=== PATIENT | male | born 1935 | race Caucasian/White ===

== ENCOUNTER → 2018-04-11 | Outpatient (CLI) | payer MEDICARE, OTHER ==
[2015-12-17 21:40] VITALS: BP 184/83
[~2018-04-11] MED LIST: ALPR0.25 PO; AMLO5TAB10 PO; ASCO500T2 PO; BREO ELLIPTA 11 EACH IH; BUDE10.2 IH; CEFU500T46 PO; CLOP75TA PO; DONE10TA7 PO; FERR325T72 PO; HYDR-2761 PO; IOHEXOL 240 MG/ML 50ML VIAL. PO ONE; IOHEXOL 300 MG/ML 100ML VIAL. IV ONE; TAMS0.4C97 PO; TRAM50TA PO
--- NOTE | 2018-04-11 14:10 | KCIC ---
Examination: CT pelvis with IV and oral contrast HISTORY: History of left inguinal hernia. COMPARISON: 12/17/2015 TECHNIQUE: Axial CT images of the pelvis were performed with oral and IV contrast. Cholecystectomy, so performed Exposure: One or more of the following individualized dose reduction techniques were utilized for this examination: 1. Automated exposure control 2. Adjustment of the mA and/or kV according to patient size 3. Use of iterative reconstruction technique. FINDINGS: The small bowel loops grossly appears unremarkable. Multiple sigmoid colon diverticulosis identified. Small fat-containing left inguinal hernia. Moderately large prostate gland. The urinary bladder is mildly distended Mild degenerative changes lumbar spine. Severe aortic atherosclerosis. IMPRESSION: 1. Small fat-containing left inguinal hernia. 2. Sigmoid colon diverticulosis. 3. Moderate prostatomegaly. Electronically signed by: Abebe Love MD (04/11/2018 2:06 PM) [facility]
== END | disposition home or self-care (01) ==
LOC: KCIC CT 09:38
PROVIDERS: ATTEND Family Medicine
DX: K40.90 Unilateral inguinal hernia, without obstruction or gangrene, not specified as recurrent (principal); K57.30 Diverticulosis of large intestine without perforation or abscess without bleeding; I70.0 Atherosclerosis of aorta; N32.89 Other specified disorders of bladder; I10 Essential (primary) hypertension
CPT/HCPCS: 72193; 82565; Q9966; Q9967

== ENCOUNTER 2018-08-11 11:06 | Inpatient (IN) | payer MEDICARE ==
[~2018-08-11] VITALS: Ht 172.7 cm; Wt 73.9 kg
[~2018-08-11 11:06] MED LIST changes: -AMLO5TAB10 PO; -ASCO500T2 PO; -BREO ELLIPTA 11 EACH IH; -BUDE10.2 IH; -CEFU500T46 PO; -DONE10TA7 PO; -FERR325T72 PO; -HYDR-2761 PO; -IOHEXOL 240 MG/ML 50ML VIAL. PO ONE; -IOHEXOL 300 MG/ML 100ML VIAL. IV ONE; -TAMS0.4C97 PO
[2018-08-11] MEDS ORDERED: methylPREDNISolone SOD SUCC PF 125 MG/2 ML VIAL. IV ONE (11:30)
[2018-08-11] MEDS ORDERED: NITROGLYCERIN SUBLINGUAL 0.4 MG BOTTLE OF 25. SL PRN (11:30)
[2018-08-11] MEDS ORDERED: ASPIRIN CHEWABLE 81 MG TABLET. PO ONE (11:30)
[2018-08-11] MEDS ORDERED: IPRATRPIUM/ALBUTEROL 0.5/2.5MG 3 ML NEBU. NEB ONE (11:30)
[2018-08-11 11:45] LABS: BASO # 0.1 x10^3/uL (0.0-0.2); BASO % 1 % (0-3); EOS % 0 % (0-3); HEMATOCRIT 33.5 % (39.0-53.0); HEMOGLOBIN 10.5 g/dL (13.0-17.5); LYMPH # 1.1 x10^3/uL (1.0-4.8); LYMPH % 15 % (24-48); MEAN CORPUSCULAR HEMOGLOBIN 23 pg (25-35); MEAN CORPUSCULAR HGB CONC 31 g/dL (31-37); MEAN CORPUSCULAR VOLUME 72 fL (79-100); MONO # 0.5 x10^3/uL (0.0-1.1); MONO % 7 % (0-9); NEUT # 5.5 x10^3uL (1.8-7.7); NEUT % 77 % (31-73); PLATELET COUNT 210 x10^3/uL (140-400); RED BLOOD COUNT 4.65 x10^6/uL (4.30-5.70); RED CELL DISTRIBUTION WIDTH 17.5 % (11.5-14.5); WHITE BLOOD COUNT 7.1 x10^3/uL (4.0-11.0)
[2018-08-11 11:49] LABS: PROTHROMBIN TIME PATIENT 14.4 SEC (11.7-14.0)
[2018-08-11 11:54] LABS: CALCIUM 9.7 mg/dL (8.5-10.1); CREATININE 0.9 mg/dL (0.7-1.3); GFR 80.6; POTASSIUM 4.4 mmol/L (3.5-5.1)
--- NOTE | 2018-08-11 11:54 | PHYS DOC ---
Past Medical History Past Medical History: Anxiety, CAD, COPD, Hypertension, PA Additional Past Medical Histor: hypoglycemia, enlarged prostate Past Surgical History: No Surgical History Smoking: Cigarettes Alcohol Use: None Drug Use: None Adult General Chief Complaint Chief Complaint: shortness of breath and chest pain [facility] HPI Patient is a 82 year old male who brought in by EMS because of shortness of breath and chest pain. Patient has history of COPD on home oxygen and currently is a smoker. Patient states she has had productive cough with yellow sputum for the last 2 weeks and since 00 30 a.m. had left lower lateral chest pain as a constant pain and rated his pain 5/10 without radiation. Patient complaining of shortness of breath with mild activity and exertion. Patient denies fever and chills, sore throat, earache, myalgia, headache sick contacts, vomiting and diarrhea, urinary symptoms, diarrhea and constipation. Patient has history of PA in 2008. Review of Systems Review of Systems Constitutional: Denies fever or chills [] Eyes: Denies change in visual acuity, redness, or eye pain [] HENT: Denies nasal congestion or sore throat [] Respiratory: Reports cough and shortness of breath Cardiovascular: No additional information not addressed in HPI [] GI: Denies abdominal pain, nausea, vomiting, bloody stools or diarrhea [] : Denies dysuria or hematuria [] Musculoskeletal: Denies back pain or joint pain [] Integument: Denies rash or skin lesions [] Neurologic: Denies headache, focal weakness or sensory changes [] Endocrine: Denies polyuria or polydipsia [] All other systems were reviewed and found to be within normal limits, except as documented in this note. Current Medications Current Medications Current Medications Medications (Trade) Dose Ordered Sig/Miriam Start Time Stop Time Status Last Admin Dose Admin Albuterol/ Ipratropium (Duoneb) 3 ml 1X ONCE 08/11/18 11:30 08/11/18 11:31 DC 08/11/18 11:38 3 ML Aspirin (Children'S Aspirin) 324 mg 1X ONCE 08/11/18 11:30 08/11/18 11:31 DC Azithromycin 250 ml @ 250 mls/hr 1X ONCE 08/11/18 14:15 08/11/18 15:14 Ceftriaxone Sodium (Rocephin) 1 gm 1X ONCE 08/11/18 14:00 08/11/18 14:01 DC 08/11/18 14:11 1 GM Iohexol (Omnipaque 350 Mg/ml) 100 ml 1X ONCE 08/11/18 12:30 08/11/18 12:31 DC 08/11/18 12:47 100 ML Methylprednisolone Sodium Succinate (SOLU-Medrol 125MG VIAL) 125 mg 1X ONCE 08/11/18 11:30 08/11/18 11:31 DC 08/11/18 11:46 125 MG Nitroglycerin (Nitrostat) 0.4 mg PRN Q5MIN PRN 08/11/18 11:30 08/12/18 11:29 08/11/18 11:47 0.4 MG Allergies Allergies Allergies Coded Allergies Type Severity Reaction Last Updated Verified No Known Drug Allergies 12/17/15 No Physical Exam Physical Exam Constitutional: Well developed, well nourished,mild distress, non-toxic appearance. [] HENT: Normocephalic, atraumatic, oropharynx moist. Eyes: PERRLA, EOMI, conjunctiva normal, no discharge. [] Neck: Normal range of motion, no tenderness, supple, no stridor. [] Cardiovascular:Heart rate regular rhythm, no murmur [] Lungs & Thorax: Mild respiratory distress with decrease of air movement bilaterally without wheezing Abdomen: Bowel sounds normal, soft, no tenderness, no masses, no pulsatile masses. [] Skin: Warm, dry, no erythema, no rash. [] Back: No tenderness, no CVA tenderness. [] Extremities: No tenderness, no cyanosis, no clubbing, ROM intact, no edema. [] Neurologic: Alert and oriented X 3, normal motor function, normal sensory function, no focal deficits noted. [] Psychologic: Affect normal, judgement normal, mood normal. [] Current Patient Data Vital Signs Vital Signs Date Time Temp Pulse Resp B/P (MAP) Pulse Ox O2 Delivery O2 Flow Rate FiO2 08/11/18 11:56 95 15 115/58 (77) 92 Nasal Cannula 2.0 08/11/18 11:09 98.7 98.7 Lab Values Laboratory Tests Test 08/11/18 11:20 08/11/18 11:30 White Blood Count 7.1 x10^3/uL (4.0-11.0) Red Blood Count 4.65 x10^6/uL (4.30-5.70) Hemoglobin 10.5 g/dL (13.0-17.5) L Hematocrit 33.5 % (39.0-53.0) L Mean Corpuscular Volume 72 fL (79-100) L Mean Corpuscular Hemoglobin 23 pg (25-35) L Mean Corpuscular Hemoglobin Concent 31 g/dL (31-37) Red Cell Distribution Width 17.5 % (11.5-14.5) H Platelet Count 210 x10^3/uL (140-400) Neutrophils (%) (Auto) 77 % (31-73) H Lymphocytes (%) (Auto) 15 % (24-48) L Monocytes (%) (Auto) 7 % (0-9) Eosinophils (%) (Auto) 0 % (0-3) Basophils (%) (Auto) 1 % (0-3) Neutrophils # (Auto) 5.5 x10^3uL (1.8-7.7) Lymphocytes # (Auto) 1.1 x10^3/uL (1.0-4.8) Monocytes # (Auto) 0.5 x10^3/uL (0.0-1.1) Eosinophils # (Auto) 0.0 x10^3/uL (0.0-0.7) Basophils # (Auto) 0.1 x10^3/uL (0.0-0.2) Platelet Estimate Adequate (ADEQUATE) Polychromasia Slight Hypochromasia Mod Anisocytosis Slight Microcytosis Slight Prothrombin Time 14.4 SEC (11.7-14.0) H Prothrombin Time INR 1.2 (0.8-1.1) H D-Dimer (Razia) 0.87 ug/mlFEU (0.00-0.50) H Sodium Level 135 mmol/L (136-145) L Potassium Level 4.4 mmol/L (3.5-5.1) Chloride Level 99 mmol/L (98-107) Carbon Dioxide Level 27 mmol/L (21-32) Anion Gap 9 (6-14) Blood Urea Nitrogen 13 mg/dL (8-26) Creatinine 0.9 mg/dL (0.7-1.3) Estimated GFR (Cockcroft-Gault) 80.6 BUN/Creatinine Ratio 14 (6-20) Glucose Level 106 mg/dL (70-99) H Calcium Level 9.7 mg/dL (8.5-10.1) Magnesium Level 2.0 mg/dL (1.8-2.4) Total Bilirubin 0.5 mg/dL (0.2-1.0) Aspartate Amino Transferase (AST) 17 U/L (15-37) Alanine Aminotransferase (ALT) 18 U/L (16-63) Alkaline Phosphatase 106 U/L (46-116) Creatine Kinase 72 U/L (39-308) Troponin I Quantitative < 0.017 ng/mL (0.000-0.055) HH-Hze-U-Type Natriuretic Peptide 565 pg/mL (0-449) H Total Protein 7.5 g/dL (6.4-8.2) Albumin 3.6 g/dL (3.4-5.0) Albumin/Globulin Ratio 0.9 (1.0-1.7) L Lactic Acid Level 0.9 mmol/L (0.4-2.0) Laboratory Tests 08/11/18 11:20 Laboratory Tests 08/11/18 11:20 EKG EKG EKG interpreted by me. EKG at 1110 showed normal sinus rhythm at rate of 99, PVCs, poor R-wave progress in anteroseptal leads, no acute ST and T-wave abnormalities. Radiology/Procedures Radiology/Procedures [facility] [address] [place] [address] IMAGING REPORT Signed PATIENT: VITA VELA ACCOUNT: [id number] : 1935 LOCATION: ER AGE: 82 SEX: M EXAM STATUS: REG ER ORD. PHYSICIAN: CATA ESQUIVEL MD REASON: chest pain and shortness of breath PROCEDURE: PORTABLE CHEST 1V EXAM: CHEST 1 VIEW History: Chest pain, shortness of breath COMPARISON: None available. TECHNIQUE: Single portable radiograph of the chest FINDINGS: The cardiac silhouette is unremarkable. Mild prominent bilateral interstitial lung markings. Mild bibasilar lung airspace opacities. IMPRESSION: 1. Mild prominent bilateral interstitial lung markings could be chronic interstitial changes. 2. Mild bibasilar lung airspace opacities likely atelectasis or infiltrates. Electronically signed by: Abebe Love MD (08/11/2018 12:08 PM) [place] [id number] DICTATED and SIGNED BY: ABEBE LOVE MD DATE: 08/11/18 1208 [facility] [address] [place] [address] IMAGING REPORT Signed PATIENT: VITA VELA ACCOUNT: [id number] : 1935 LOCATION: ER AGE: 82 SEX: M EXAM STATUS: REG ER ORD. PHYSICIAN: CATA ESQUIVEL MD REASON: shortness of breath and chest pain, elevated d-dimer PROCEDURE: CT ANGIOGRAPHY CHEST Examination: CT ANGIOGRAPHY CHEST History: Shortness of breath and chest pain, elevated d-dimer Comparison/Correlation: None Findings: Axial images of chest were obtained following IV contrast according to pulmonary arteriography protocol. Sagittal and coronal reformatted images were provided. MIP images provided. Respiratory motion limits evaluation at the left lung base in particular. Pulmonary arterial vasculature is normal with no thromboembolic disease. Consolidation at left lower lobe superior segment is present. Evaluation may be limited in this region. Diffuse centrilobular emphysematous involvement along cazares noted. Right middle lobe nodule measuring up to 1.3 cm x 0.7 cm is present. It is slightly irregularly marginated. Borderline sized aorticopulmonary window lymph nodes present. Lymph nodes otherwise are not enlarged. Tracheobronchial tree is unremarkable. Thoracic aorta is very well-opacified and unremarkable for the patient's age. No acute bony process. Partially visualized upper abdomen is unremarkable. Impression: Left lower lobe superior segment consolidative process. Right middle lobe nodular infiltrate. Follow-up to resolution is recommended to exclude underlying mass lesions. No pulmonary arterial thromboembolic disease. PQRS Compliance Statement: One or more of the following individualized dose reduction techniques were utilized for this examination: 1. Automated exposure control 2. Adjustment of the mA and/or kV according to patient size 3. Use of iterative reconstruction technique Electronically signed by: Grarett Santos MD (08/11/2018 12:57 PM) [facility] DICTATED and SIGNED BY: GARRETT SANTOS MD DATE: 08/11/18 1257 Course & Med Decision Making Course & Med Decision Making Pertinent Labs and Imaging studies reviewed. (See chart for details) Evaluation of patient in ER showed 81-year-old male patient with history of smoking and COPD on home oxygen brought in by EMS because of left-sided chest pain and shortness of breath. Patient had O2 sat of 92% on home oxygen with decreased air movement in bilateral lung. Patient had elevation of d-dimer and CT of chest did not show PE but showed infiltration in left lung. Patient informed about the test result and agreed for hospitalization.Patient requiring admission for further evaluation and treatment. Discussed with Dr. Tabares who is in agreement with admission. Discussed findings and plan with patient and sarika johnson, who acknowledge understanding and agreement. Dragon Disclaimer Dragon Disclaimer This electronic medical record was generated, in whole or in part, using a voice recognition dictation system. Departure Departure Impression: Primary Impression: CAP (community acquired pneumonia) Additional Impressions: Chest wall pain COPD (chronic obstructive pulmonary disease) Tobacco abuse Tobacco abuse counseling Disposition: 09 ADMITTED INPATIENT (admitted at 1410) Admitting Physician: Leonard Tabares (accepted admission at 1410) Condition: IMPROVED Referrals: Bernie TABARES MD (PCP) Problem Qualifiers Primary Impression: CAP (community acquired pneumonia) Laterality: left Lung location: lower lobe of lung Qualified Codes: J18.1 - Lobar pneumonia, unspecified organism Additional Impressions: COPD (chronic obstructive pulmonary disease) COPD type: chronic bronchitis Chronic bronchitis type: unspecified Qualified Codes: J42 - Unspecified chronic bronchitis CATA ESQUIVEL MD August 11, 2018 11:54
[2018-08-11 11:59] LABS: D-DIMER 0.87 ug/mlFEU (0.00-0.50)
--- NOTE | 2018-08-11 12:05 | EKG ---
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
[2018-08-11 12:06] LABS: ALBUMIN 3.6 g/dL (3.4-5.0); ALBUMIN/GLOBULIN RATIO 0.9 (1.0-1.7); TOTAL BILIRUBIN 0.5 mg/dL (0.2-1.0); TOTAL PROTEIN 7.5 g/dL (6.4-8.2)
--- NOTE | 2018-08-11 12:11 | RAD ---
EXAM: CHEST 1 VIEW History: Chest pain, shortness of breath COMPARISON: None available. TECHNIQUE: Single portable radiograph of the chest FINDINGS: The cardiac silhouette is unremarkable. Mild prominent bilateral interstitial lung markings. Mild bibasilar lung airspace opacities. IMPRESSION: 1. Mild prominent bilateral interstitial lung markings could be chronic interstitial changes. 2. Mild bibasilar lung airspace opacities likely atelectasis or infiltrates. Electronically signed by: Abebe Love MD (08/11/2018 12:08 PM) [place] [id number]
[2018-08-11] MEDS ORDERED: IOHEXOL 350 MG/ML 100 ML VIAL. IV ONE (12:30)
--- NOTE | 2018-08-11 13:00 | RAD ---
Examination: CT ANGIOGRAPHY CHEST History: Shortness of breath and chest pain, elevated d-dimer Comparison/Correlation: None Findings: Axial images of chest were obtained following IV contrast according to pulmonary arteriography protocol. Sagittal and coronal reformatted images were provided. MIP images provided. Respiratory motion limits evaluation at the left lung base in particular. Pulmonary arterial vasculature is normal with no thromboembolic disease. Consolidation at left lower lobe superior segment is present. Evaluation may be limited in this region. Diffuse centrilobular emphysematous involvement along cazares noted. Right middle lobe nodule measuring up to 1.3 cm x 0.7 cm is present. It is slightly irregularly marginated. Borderline sized aorticopulmonary window lymph nodes present. Lymph nodes otherwise are not enlarged. Tracheobronchial tree is unremarkable. Thoracic aorta is very well-opacified and unremarkable for the patient's age. No acute bony process. Partially visualized upper abdomen is unremarkable. Impression: Left lower lobe superior segment consolidative process. Right middle lobe nodular infiltrate. Follow-up to resolution is recommended to exclude underlying mass lesions. No pulmonary arterial thromboembolic disease. PQRS Compliance Statement: One or more of the following individualized dose reduction techniques were utilized for this examination: 1. Automated exposure control 2. Adjustment of the mA and/or kV according to patient size 3. Use of iterative reconstruction technique Electronically signed by: Garrett George MD (08/11/2018 12:57 PM) [facility]
[2018-08-11] MEDS ORDERED: cefTRIAXone IV Push 1 GM VIAL. IVP ONE (14:00)
[2018-08-11] MEDS ORDERED: AZITHRMYCN 500MG IVPB FOR OMNI 250 ML IV ONE (14:15)
[2018-08-11 14:23] LABS: ANISOCYTOSIS SLIGHT; HYPOCHROMIA MOD; MICROCYTOSIS SLIGHT; PLT ESTIMATE ADEQUATE (ADEQUATE); POLYCHROMASIA SLIGHT
[2018-08-11 16:30] VITALS: BP 103/72
[2018-08-11] MEDS ORDERED: AMLO5TAB10 PO (17:18)
[2018-08-11] MEDS ORDERED: DONE10TA7 PO (17:18)
[2018-08-11] MEDS ORDERED: HYDR-2761 PO (17:21)
[2018-08-11] MEDS ORDERED: TAMS0.4C97 PO (17:21)
[2018-08-11] MEDS ORDERED: BREO ELLIPTA 11 EACH IH (17:21)
--- NOTE | 2018-08-11 18:04 | PDOC1 ---
History and Physical Date of Admission Date of Admission 08/11/18 Identification/Chief Complaint Chief Complaint SOA Source Source: Patient History of Present Illness History of Present Illness He has had a cough for the past two weeks that will leave him breathless but if he rests and uses hi O2 he recovers. Last night he dreamed he was hot then cold and was awakened by a colicky pain in his LUQ and eventually had a couple of loose stools. He continued to not feel well and called the office and was directed to call 911 which he did and was brought to the ER and seen and admitted with a COPD exacerbation and community acquired pneumonia. He is feeling better and talking in complete sentences and sitting up in bed eating dinner. He usually uses Symbicort at home but his insurance doesnt cover it and due to a prior palsy he does not close his lips around Breo well enough for it to last all day Past Medical History Cardiovascular: CAD, HTN Pulmonary: COPD CENTRAL NERVOUS SYSTEM: CVA GI: GERD Heme/Onc: No pertinent hx Hepatobiliary: No pertinent hx Psych: Anxiety Rheumatologic: Other (OA) Infectious disease: No pertinent hx ENT: No pertinent hx Renal/: No pertinent hx Endocrine: No pertinent hx Dermatology: No pertinent hx Past Surgical History Past Surgical History: No pertinent history Family History Family History: Heart Disease Social History Smoke: Quit ALCOHOL: none Drugs: None Current Problem List Problem List Problems Medical Problems: (1) CAP (community acquired pneumonia) Status: Acute (2) Chest wall pain Status: Acute (3) COPD (chronic obstructive pulmonary disease) Status: Acute (4) Tobacco abuse Status: Acute (5) Tobacco abuse counseling Status: Acute Current Medications Current Medications Current Medications Medications (Trade) Dose Ordered Sig/Miriam Start Time Stop Time Status Last Admin Dose Admin Albuterol/ Ipratropium (Duoneb) 3 ml 1X ONCE 08/11/18 11:30 08/11/18 11:31 DC 08/11/18 11:38 3 ML Aspirin (Children'S Aspirin) 324 mg 1X ONCE 08/11/18 11:30 08/11/18 11:31 DC Azithromycin 250 ml @ 250 mls/hr 1X ONCE 08/11/18 14:15 08/11/18 15:14 DC 08/11/18 15:31 250 MLS/HR Ceftriaxone Sodium (Rocephin) 1 gm 1X ONCE 08/11/18 14:00 08/11/18 14:01 DC 08/11/18 14:11 1 GM Iohexol (Omnipaque 350 Mg/ml) 100 ml 1X ONCE 08/11/18 12:30 08/11/18 12:31 DC 08/11/18 12:47 100 ML Methylprednisolone Sodium Succinate (SOLU-Medrol 125MG VIAL) 125 mg 1X ONCE 08/11/18 11:30 08/11/18 11:31 DC 08/11/18 11:46 125 MG Nitroglycerin (Nitrostat) 0.4 mg PRN Q5MIN PRN 08/11/18 11:30 08/12/18 11:29 08/11/18 11:47 0.4 MG Allergies Allergies Allergies Coded Allergies Type Severity Reaction Last Updated Verified statins, zetia myalgia, headache 12/17/15 No ROS Review of System CONSTITUTIONAL: No fever or chills EYES: No recent changes, wears glasses SKIN: No rash or itching CARDIOVASCULAR: No chest pain, syncope, palpitations, or edema RESPIRATORY: + SOB, + cough GASTROINTESTINAL: colicky LUQ abdominal pin last night NEUROLOGICAL: left facial droop ENDOCRINE: No cold or heat intolerance GENITOURINARY: hx of urinary retention MUSCULOSKELETAL: No back pain or joint pain LYMPHATICS: No enlarged lymph nodes PSYCHIATRIC: + anxiety controlled with meds Physical Exam Physical Exam GEN.: No apparent distress. Alert and oriented. HEENT: Head is normocephalic, atraumatic NECK: Supple. LUNGS: Clear to auscultation. HEART: RRR, S1, S2 present. Peripheral pulses intact ABDOMEN: Soft, nontender. Positive bowel sounds. EXTREMITIES: Without any cyanosis. NEUROLOGIC: left lower facial droop PSYCHIATRIC: Normal affect, normal mood. SKIN: No ulcerations Vitals Vitals Vital Signs Date Time Temp Pulse Resp B/P (MAP) Pulse Ox O2 Delivery O2 Flow Rate FiO2 08/11/18 16:30 97.9 93 18 103/72 (82) 93 Room Air 97.9 08/11/18 11:56 2.0 Labs Labs Laboratory Tests Test 08/11/18 11:20 08/11/18 11:30 White Blood Count 7.1 x10^3/uL (4.0-11.0) Red Blood Count 4.65 x10^6/uL (4.30-5.70) Hemoglobin 10.5 g/dL (13.0-17.5) Hematocrit 33.5 % (39.0-53.0) Mean Corpuscular Volume 72 fL (79-100) Mean Corpuscular Hemoglobin 23 pg (25-35) Mean Corpuscular Hemoglobin Concent 31 g/dL (31-37) Red Cell Distribution Width 17.5 % (11.5-14.5) Platelet Count 210 x10^3/uL (140-400) Neutrophils (%) (Auto) 77 % (31-73) Lymphocytes (%) (Auto) 15 % (24-48) Monocytes (%) (Auto) 7 % (0-9) Eosinophils (%) (Auto) 0 % (0-3) Basophils (%) (Auto) 1 % (0-3) Neutrophils # (Auto) 5.5 x10^3uL (1.8-7.7) Lymphocytes # (Auto) 1.1 x10^3/uL (1.0-4.8) Monocytes # (Auto) 0.5 x10^3/uL (0.0-1.1) Eosinophils # (Auto) 0.0 x10^3/uL (0.0-0.7) Basophils # (Auto) 0.1 x10^3/uL (0.0-0.2) Platelet Estimate Adequate (ADEQUATE) Polychromasia Slight Hypochromasia Mod Anisocytosis Slight Microcytosis Slight Prothrombin Time 14.4 SEC (11.7-14.0) Prothromb Time International Ratio 1.2 (0.8-1.1) D-Dimer (Razia) 0.87 ug/mlFEU (0.00-0.50) Sodium Level 135 mmol/L (136-145) Potassium Level 4.4 mmol/L (3.5-5.1) Chloride Level 99 mmol/L (98-107) Carbon Dioxide Level 27 mmol/L (21-32) Anion Gap 9 (6-14) Blood Urea Nitrogen 13 mg/dL (8-26) Creatinine 0.9 mg/dL (0.7-1.3) Estimated GFR (Cockcroft-Gault) 80.6 BUN/Creatinine Ratio 14 (6-20) Glucose Level 106 mg/dL (70-99) Calcium Level 9.7 mg/dL (8.5-10.1) Magnesium Level 2.0 mg/dL (1.8-2.4) Total Bilirubin 0.5 mg/dL (0.2-1.0) Aspartate Amino Transf (AST/SGOT) 17 U/L (15-37) Alanine Aminotransferase (ALT/SGPT) 18 U/L (16-63) Alkaline Phosphatase 106 U/L (46-116) Creatine Kinase 72 U/L (39-308) Troponin I Quantitative < 0.017 ng/mL (0.000-0.055) KJ-Sun-H-Type Natriuretic Peptide 565 pg/mL (0-449) Total Protein 7.5 g/dL (6.4-8.2) Albumin 3.6 g/dL (3.4-5.0) Albumin/Globulin Ratio 0.9 (1.0-1.7) Lactic Acid Level 0.9 mmol/L (0.4-2.0) Laboratory Tests Test 08/11/18 11:20 08/11/18 11:30 White Blood Count 7.1 x10^3/uL (4.0-11.0) Red Blood Count 4.65 x10^6/uL (4.30-5.70) Hemoglobin 10.5 g/dL (13.0-17.5) Hematocrit 33.5 % (39.0-53.0) Mean Corpuscular Volume 72 fL (79-100) Mean Corpuscular Hemoglobin 23 pg (25-35) Mean Corpuscular Hemoglobin Concent 31 g/dL (31-37) Red Cell Distribution Width 17.5 % (11.5-14.5) Platelet Count 210 x10^3/uL (140-400) Neutrophils (%) (Auto) 77 % (31-73) Lymphocytes (%) (Auto) 15 % (24-48) Monocytes (%) (Auto) 7 % (0-9) Eosinophils (%) (Auto) 0 % (0-3) Basophils (%) (Auto) 1 % (0-3) Neutrophils # (Auto) 5.5 x10^3uL (1.8-7.7) Lymphocytes # (Auto) 1.1 x10^3/uL (1.0-4.8) Monocytes # (Auto) 0.5 x10^3/uL (0.0-1.1) Eosinophils # (Auto) 0.0 x10^3/uL (0.0-0.7) Basophils # (Auto) 0.1 x10^3/uL (0.0-0.2) Platelet Estimate Adequate (ADEQUATE) Polychromasia Slight Hypochromasia Mod Anisocytosis Slight Microcytosis Slight Prothrombin Time 14.4 SEC (11.7-14.0) Prothromb Time International Ratio 1.2 (0.8-1.1) D-Dimer (Razia) 0.87 ug/mlFEU (0.00-0.50) Sodium Level 135 mmol/L (136-145) Potassium Level 4.4 mmol/L (3.5-5.1) Chloride Level 99 mmol/L (98-107) Carbon Dioxide Level 27 mmol/L (21-32) Anion Gap 9 (6-14) Blood Urea Nitrogen 13 mg/dL (8-26) Creatinine 0.9 mg/dL (0.7-1.3) Estimated GFR (Cockcroft-Gault) 80.6 BUN/Creatinine Ratio 14 (6-20) Glucose Level 106 mg/dL (70-99) Calcium Level 9.7 mg/dL (8.5-10.1) Magnesium Level 2.0 mg/dL (1.8-2.4) Total Bilirubin 0.5 mg/dL (0.2-1.0) Aspartate Amino Transf (AST/SGOT) 17 U/L (15-37) Alanine Aminotransferase (ALT/SGPT) 18 U/L (16-63) Alkaline Phosphatase 106 U/L (46-116) Creatine Kinase 72 U/L (39-308) Troponin I Quantitative < 0.017 ng/mL (0.000-0.055) RO-Zna-D-Type Natriuretic Peptide 565 pg/mL (0-449) Total Protein 7.5 g/dL (6.4-8.2) Albumin 3.6 g/dL (3.4-5.0) Albumin/Globulin Ratio 0.9 (1.0-1.7) Lactic Acid Level 0.9 mmol/L (0.4-2.0) Images Images Examination: CT ANGIOGRAPHY CHEST History: Shortness of breath and chest pain, elevated d-dimer Comparison/Correlation: None Findings: Axial images of chest were obtained following IV contrast according to pulmonary arteriography protocol. Sagittal and coronal reformatted images were provided. MIP images provided. Respiratory motion limits evaluation at the left lung base in particular. Pulmonary arterial vasculature is normal with no thromboembolic disease. Consolidation at left lower lobe superior segment is present. Evaluation may be limited in this region. Diffuse centrilobular emphysematous involvement along cazares noted. Right middle lobe nodule measuring up to 1.3 cm x 0.7 cm is present. It is slightly irregularly marginated. Borderline sized aorticopulmonary window lymph nodes present. Lymph nodes otherwise are not enlarged. Tracheobronchial tree is unremarkable. Thoracic aorta is very well-opacified and unremarkable for the patient's age. No acute bony process. Partially visualized upper abdomen is unremarkable. Impression: Left lower lobe superior segment consolidative process. Right middle lobe nodular infiltrate. Follow-up to resolution is recommended to exclude underlying mass lesions. No pulmonary arterial thromboembolic disease. VTE Prophylaxis Ordered VTE Prophylaxis Devices: Yes VTE Pharmacological Prophylaxi: Yes Assessment/Plan Assessment/Plan CAP vs aspiration pneumonia - IV abx, pulm consult possible lung mass -see if clears with tx of CAP COPD, emphysema - neb treatments CAD s/p RCA stent 2008 HTN - continue amlodipine, lisinopril carotid stenosis - continue plavix GERD - continue omeprazole OA - continue tramodol mild cognitive dysfunction - continue donepezil anxiety - cont alprazolam Bernie QUESADA MD August 11, 2018 18:04
[2018-08-11] MEDS ORDERED: traMADol 50 MG TABLET PO PRN (18:15)
[2018-08-11 19:00] VITALS: BP 145/66
[2018-08-11] MEDS: IPRATRPIUM/ALBUTEROL 0.5/2.5MG 3 ML NEBU. NEB SCH (19:58)
[2018-08-11] MEDS: BUDESONIDE 0.5 MG/2 ML NEBU. NEB SCH (19:58)
[2018-08-11] MEDS: DONEPEZIL HCL 10 MG TABLET. PO SCH (21:28)
[2018-08-11] MEDS: TAMSULOSIN 0.4 MG CAP.ER.24H. PO SCH (21:29)
[2018-08-11] MEDS ORDERED: ALPRAZolam 0.25 MG TABLET PO SCH (22:00)
[2018-08-11 23:05] VITALS: BP 140/65
[2018-08-12] VITALS (7 sets, daily range): BP systolic 128–162; BP diastolic 35–74
[2018-08-12 07:47] LABS: BASO % 0 % (0-3); EOS % 0 % (0-3); HEMOGLOBIN 9.4 g/dL (13.0-17.5); LYMPH # 0.9 x10^3/uL (1.0-4.8); LYMPH % 14 % (24-48); MEAN CORPUSCULAR HEMOGLOBIN 23 pg (25-35); MEAN CORPUSCULAR HGB CONC 31 g/dL (31-37); MEAN CORPUSCULAR VOLUME 72 fL (79-100); MONO # 0.4 x10^3/uL (0.0-1.1); MONO % 6 % (0-9); NEUT # 5.4 x10^3uL (1.8-7.7); NEUT % 80 % (31-73); PLATELET COUNT 197 x10^3/uL (140-400); RED BLOOD COUNT 4.19 x10^6/uL (4.30-5.70); RED CELL DISTRIBUTION WIDTH 17.3 % (11.5-14.5); WHITE BLOOD COUNT 6.7 x10^3/uL (4.0-11.0)
[2018-08-12 07:49] LABS: CALCIUM 9.4 mg/dL (8.5-10.1); GFR 71.4; POTASSIUM 4.2 mmol/L (3.5-5.1)
[2018-08-12] MEDS: BUDESONIDE 0.5 MG/2 ML NEBU. NEB SCH ×2 (07:58→20:11)
[2018-08-12] MEDS: IPRATRPIUM/ALBUTEROL 0.5/2.5MG 3 ML NEBU. NEB SCH ×4 (07:58→20:10)
[2018-08-12] MEDS ORDERED: TAMSULOSIN 0.4 MG CAP.ER.24H. PO SCH (09:00)
[2018-08-12] MEDS ORDERED: ALPRAZolam 0.25 MG TABLET PO SCH (09:00)
[2018-08-12] MEDS ORDERED: DONEPEZIL HCL 10 MG TABLET. PO SCH (09:00)
[2018-08-12] MEDS: amLODIPine BESYLATE 5 MG TABLET PO SCH (09:22)
[2018-08-12] MEDS: CLOPIDOGREL BISULFATE 75 MG TABLET PO SCH (09:23)
[2018-08-12] MEDS: TAMSULOSIN 0.4 MG CAP.ER.24H. PO SCH (09:23)
[2018-08-12] MEDS: DONEPEZIL HCL 10 MG TABLET. PO SCH ×2 (09:24→21:23)
--- NOTE | 2018-08-12 14:32 | NUR ---
SW following pt for anticipated dc needs. Chart reviewed. Pt lives at home with family. No dc recommendations noted at this time. Will continue to eval dc needs.
--- NOTE | 2018-08-12 14:53 | CONS ---
DATE OF CONSULTATION: PULMONARY CONSULTATION ATTENDING PHYSICIAN: Dr. Tabares. REASON FOR CONSULTATION: Pneumonia. HISTORY OF PRESENT ILLNESS: The patient is an 82-year-old who came into the hospital complaining of shortness of breath for the last 2 weeks. He has a cough, which has been nonproductive. He was complaining of pain in the left upper quadrant and also left lower chest area. He has also had colicky pain in the past when he was in [place]. The patient has no weight loss. No fever, no chills. He underwent imaging study and was found to have an abnormal CT chest. There was no evidence of any pulmonary embolism. However, there was consolidation seen in the left lower lobe superior segment and also nodular infiltrates in the right middle lobe. The patient was started on antibiotic and I have been asked to see him for further evaluation. He denies any headaches, no nausea or vomiting. No diarrhea. No focal weakness. No weight loss. 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 PAST SURGICAL HISTORY: No recent surgeries. ALLERGIES: CODEINE. MEDICATIONS: Reviewed as listed in the MRAD. He received azithromycin. REVIEW OF SYSTEMS: Twelve-point system obtained. Pertinent positives discussed in my history of present illness, otherwise noncontributory. All systems that were negative were reviewed as well. SOCIAL HISTORY: Smoked pipe most of his life. PHYSICAL EXAMINATION: VITAL SIGNS: Stable. Pulse ox 94% on room air. NECK: Supple. LUNGS: Diminished breath sounds at the bases. CARDIOVASCULAR: Regular rate and rhythm. ABDOMEN: Soft, nontender. EXTREMITIES: With no pitting edema. LABORATORY DATA: Reviewed. White cell count 6.7, hemoglobin 9.4 and platelets are 197. BUN 17, creatinine 1.0. IMPRESSION: 1. Dyspnea secondary to acute exacerbation of chronic obstructive pulmonary disease and pneumonia. 2. Community-acquired pneumonia. He has an abnormal CT chest, which shows nodular infiltrate in the right middle lobe and also some nodular consolidation in the superior segment of the left lower lobe. This was surrounded by faint alveolar infiltrates. He would benefit from a followup CT chest in 4-6 weeks to rule out any malignancy. 3. Pipe smoker for last 50+ years. He likely has underlying chronic obstructive pulmonary disease. RECOMMENDATIONS: 1. Continue with present antibiotic. 2. Bronchodilators. 3. Follow up CT chest in 6-8 weeks. 4. PFTs as an outpatient. 5. Smoking cessation counseling provided. 6. Discussed with RN. SONU GERARD MD DR: RAJAN/sg JOB#: [id number] / [id number]
[2018-08-12] MEDS: cefTRIAXone IV Push 1 GM VIAL. IVP SCH (15:21)
--- NOTE | 2018-08-12 17:42 | PDOC ---
PROGRESS NOTES Subjective His left lower lobe pain has resolved, not needing O2, had trouble swallowing liquids so has video study tomorrow, talkative and ornery and emotional today Objective Afebrile General: as above Heart: RRR Lungs: Clear anteriorly, no cough while talking Abd: soft, non tender Ext: no C/C/E WBC: 6.7 Hgb: 9.4 with low iron, low ferritin K+: 4.2 Creat: 1.0 Vital Signs Vital Signs Date Time Temp Pulse Resp B/P (MAP) Pulse Ox O2 Delivery O2 Flow Rate FiO2 08/12/18 15:14 94 Room Air 08/12/18 15:00 98.3 69 20 139/60 (86) 98.3 08/12/18 08:00 2.0 I & O Intake and Output 08/12/18 07:00 Intake Total 700 ml Balance 700 ml Intake Oral 700 ml # Voids 2 Assessment and Plan A/P (1) CAP (community acquired pneumonia) - continue IV Rocephin, will need f/u CT scan in a few months Status: Acute (2) CAD/Chest wall pain - resolved, lo salt diet Status: Acute (3) COPD (chronic obstructive pulmonary disease) - continue neb treatments Status: Acute (4) Tobacco abuse - pipe smoker Status: Acute (5) anemia- iron def, add oral supplement Status: Acute Bernie QUESADA MD August 12, 2018 17:42
[2018-08-12] MEDS: ALPRAZolam 1 MG TABLET PO PRN (21:00)
[2018-08-12] MEDS ORDERED: TAMSULOSIN 0.4 MG CAP.ER.24H. PO ONE (21:30)
[2018-08-13 07:00] VITALS: BP 133/70
[2018-08-13] MEDS: BUDESONIDE 0.5 MG/2 ML NEBU. NEB SCH ×2 (08:00→20:22)
[2018-08-13] MEDS: IPRATRPIUM/ALBUTEROL 0.5/2.5MG 3 ML NEBU. NEB SCH ×4 (08:16→20:22)
[2018-08-13] MEDS: CLOPIDOGREL BISULFATE 75 MG TABLET PO SCH (08:33)
[2018-08-13] MEDS: ASCORBIC ACID 500 MG TABLET PO SCH (08:33)
[2018-08-13] MEDS: FERROUS SULFATE 325 MG TABLET. PO SCH (08:34)
[2018-08-13] MEDS: amLODIPine BESYLATE 5 MG TABLET PO SCH (08:34)
[2018-08-13] MEDS ORDERED: BARIUM SULFATE 40% (APPLE) 148 GM PWD. PO ONE (10:00)
--- NOTE | 2018-08-13 10:45 | PDOC ---
PULMONARY PROGRESS NOTES Vitals Vital Signs Date Time Temp Pulse Resp B/P (MAP) Pulse Ox O2 Delivery O2 Flow Rate FiO2 08/13/18 08:34 104 130/61 08/13/18 08:16 98 Nasal Cannula 1.5 08/13/18 07:00 98.0 18 98.0 Labs Laboratory Tests Test 08/11/18 11:20 08/11/18 11:30 08/12/18 06:30 White Blood Count 7.1 x10^3/uL (4.0-11.0) 6.7 x10^3/uL (4.0-11.0) Red Blood Count 4.65 x10^6/uL (4.30-5.70) 4.19 x10^6/uL (4.30-5.70) Hemoglobin 10.5 g/dL (13.0-17.5) 9.4 g/dL (13.0-17.5) Hematocrit 33.5 % (39.0-53.0) 30.0 % (39.0-53.0) Mean Corpuscular Volume 72 fL (79-100) 72 fL (79-100) Mean Corpuscular Hemoglobin 23 pg (25-35) 23 pg (25-35) Mean Corpuscular Hemoglobin Concent 31 g/dL (31-37) 31 g/dL (31-37) Red Cell Distribution Width 17.5 % (11.5-14.5) 17.3 % (11.5-14.5) Platelet Count 210 x10^3/uL (140-400) 197 x10^3/uL (140-400) Neutrophils (%) (Auto) 77 % (31-73) 80 % (31-73) Lymphocytes (%) (Auto) 15 % (24-48) 14 % (24-48) Monocytes (%) (Auto) 7 % (0-9) 6 % (0-9) Eosinophils (%) (Auto) 0 % (0-3) 0 % (0-3) Basophils (%) (Auto) 1 % (0-3) 0 % (0-3) Neutrophils # (Auto) 5.5 x10^3uL (1.8-7.7) 5.4 x10^3uL (1.8-7.7) Lymphocytes # (Auto) 1.1 x10^3/uL (1.0-4.8) 0.9 x10^3/uL (1.0-4.8) Monocytes # (Auto) 0.5 x10^3/uL (0.0-1.1) 0.4 x10^3/uL (0.0-1.1) Eosinophils # (Auto) 0.0 x10^3/uL (0.0-0.7) 0.0 x10^3/uL (0.0-0.7) Basophils # (Auto) 0.1 x10^3/uL (0.0-0.2) 0.0 x10^3/uL (0.0-0.2) Platelet Estimate Adequate (ADEQUATE) Polychromasia Slight Hypochromasia Mod Anisocytosis Slight Microcytosis Slight Prothrombin Time 14.4 SEC (11.7-14.0) Prothromb Time International Ratio 1.2 (0.8-1.1) D-Dimer (Razia) 0.87 ug/mlFEU (0.00-0.50) Sodium Level 135 mmol/L (136-145) 135 mmol/L (136-145) Potassium Level 4.4 mmol/L (3.5-5.1) 4.2 mmol/L (3.5-5.1) Chloride Level 99 mmol/L (98-107) 101 mmol/L (98-107) Carbon Dioxide Level 27 mmol/L (21-32) 25 mmol/L (21-32) Anion Gap 9 (6-14) 9 (6-14) Blood Urea Nitrogen 13 mg/dL (8-26) 17 mg/dL (8-26) Creatinine 0.9 mg/dL (0.7-1.3) 1.0 mg/dL (0.7-1.3) Estimated GFR (Cockcroft-Gault) 80.6 71.4 BUN/Creatinine Ratio 14 (6-20) Glucose Level 106 mg/dL (70-99) 144 mg/dL (70-99) Calcium Level 9.7 mg/dL (8.5-10.1) 9.4 mg/dL (8.5-10.1) Magnesium Level 2.0 mg/dL (1.8-2.4) Iron Level 26 ug/dL (65-175) Total Iron Binding Capacity 350 ug/dL (250-450) Iron Saturation 7 % (15-34) Ferritin 14 ng/mL (26-388) Total Bilirubin 0.5 mg/dL (0.2-1.0) Aspartate Amino Transf (AST/SGOT) 17 U/L (15-37) Alanine Aminotransferase (ALT/SGPT) 18 U/L (16-63) Alkaline Phosphatase 106 U/L (46-116) Creatine Kinase 72 U/L (39-308) Troponin I Quantitative < 0.017 ng/mL (0.000-0.055) NU-Mnf-Z-Type Natriuretic Peptide 565 pg/mL (0-449) Total Protein 7.5 g/dL (6.4-8.2) Albumin 3.6 g/dL (3.4-5.0) Albumin/Globulin Ratio 0.9 (1.0-1.7) Vitamin B12 Level > 2000 pg/mL (247-911) Lactic Acid Level 0.9 mmol/L (0.4-2.0) Medications Active Scripts Medications Dose Route/Sig Max Daily Dose Days Date Category Breo Ellipta 100-25 Mcg Inh (Fluticasone/Vilanterol) 1 Each Aer.pow.ba Unknown Dose IH DAILY 08/11/18 Reported Hydrocodone-Apap 5-325 (Hydrocodone Bit/Acetaminophen) 1 Tab Tablet 5 Tab PO PRN Q6HRS PRN 08/11/18 Reported Flomax (Tamsulosin Hcl) 0.4 Mg Cap.er.24h 1 Cap PO DAILY 08/11/18 Reported Amlodipine Besylate 5 Mg Tablet 5 Mg PO DAILY 08/11/18 Reported Donepezil Hcl 10 Mg Tablet 10 Tab PO DAILY 08/11/18 Reported Tramadol Hcl 50 Mg Tablet 50 Mg PO DAILY PRN 04/11/18 Reported Xanax (Alprazolam) 0.25 Mg Tablet 1 Tab PO DAILY 04/11/18 Reported Clopidogrel (Clopidogrel Bisulfate) 75 Mg Tablet 1 Tab PO DAILY 04/11/18 Reported Impression . 1. Dyspnea secondary to acute exacerbation of chronic obstructive pulmonary disease and pneumonia. 2. Community-acquired pneumonia. He has an abnormal CT chest, which shows nodular infiltrate in the right middle lobe and also some nodular consolidation in the superior segment of the left lower lobe. This was surrounded by faint alveolar infiltrates. He would benefit from a followup CT chest in 4-6 weeks to rule out any malignancy. 3. Pipe smoker for last 50+ years. He likely has underlying chronic obstructive pulmonary disease. Plan . 1. Continue with present antibiotic. 2. Bronchodilators. 3. Follow up CT chest in 6-8 weeks. 4. PFTs as an outpatient. 5. Smoking cessation counseling provided. 6. Discussed with RN. Pt was not seen by me today as he was not in the room . Gone for swallow test. Impression/plan stays the same as initial consult. SONU GERARD MD August 13, 2018 10:45
[2018-08-13 11:00] VITALS: BP 125/68
--- NOTE | 2018-08-13 12:01 | RAD ---
Video dysphasia study, 08/13/2018: History: Dysphagia Swallowing mechanism was examined fluoroscopically in the lateral projection while the patient ingested a variety of food materials mixed with barium. 3.1 minutes of fluoroscopy time was utilized. One video fluoroscopic loop was recorded by a member of the speech Department. The patient demonstrated good oral control of the barium materials. When ingesting the thin liquids there was intermittent deep laryngeal penetration. There was one episode of minimal milagros aspiration which elicited a cough reflex. When ingesting the nectar consistency material there was persistent intermittent laryngeal penetration. When ingesting the honey thickened material, the laryngeal penetration abated. The patient ingested the barium coated solids without difficulty. There was very little vallecular or piriform sinus residue. IMPRESSION: Intermittent deep laryngeal penetration and minimal milagros aspiration of the thin liquids which abated when the honey thickened material was utilized.
--- NOTE | 2018-08-13 13:23 | PDOC ---
PROGRESS NOTES Subjective "rough night" due to coughing fit after neb tx, he is very concerned about getting Symbicort after discharge, video swallow shows aspiration of thin liquids but resolved with honey thick, no fever, no bowel concerns Objective Afebrile General: A&O Heart: RRR Lungs: clear anteriorly, wearing O2 Abd: soft, non tender Ext: no C/C/E Vital Signs Vital Signs Date Time Temp Pulse Resp B/P (MAP) Pulse Ox O2 Delivery O2 Flow Rate FiO2 08/13/18 11:00 98.8 84 18 125/68 (87) 90 Nasal Cannula 1.5 98.8 I & O Intake and Output 08/13/18 07:00 Intake Total 1620 ml Output Total 0 ml Balance 1620 ml Intake Oral 1620 ml Output Urine Total 0 ml # Voids 8 Assessment and Plan A/P: (1) CAP (community acquired pneumonia) - he aspirates thin liquids - honey thick Dysphagia III diet, continue IV Rocephin, recheck CXR in am, will need f/u CT scan in a few months Status: Acute (2) CAD/Chest wall pain - resolved, lo salt diet Status: Acute (3) COPD (chronic obstructive pulmonary disease) - continue neb treatments Status: Acute (4) Tobacco abuse - pipe smoker Status: Acute (5) anemia- iron def, add oral supplement Bernie QUESADA MD August 13, 2018 13:23
[2018-08-13 15:00] VITALS: BP 165/85
[2018-08-13] MEDS: cefTRIAXone IV Push 1 GM VIAL. IVP SCH (18:07)
[2018-08-13 19:00] VITALS: BP 130/73
[2018-08-13] MEDS: ALPRAZolam 1 MG TABLET PO PRN (20:35)
[2018-08-13] MEDS: DONEPEZIL HCL 10 MG TABLET. PO SCH (20:35)
[2018-08-13] MEDS ORDERED: TAMSULOSIN 0.4 MG CAP.ER.24H. PO SCH (21:00)
[2018-08-14 04:18] LABS: BASO % 1 % (0-3); EOS % 1 % (0-3); HEMATOCRIT 29.5 % (39.0-53.0); HEMOGLOBIN 9.1 g/dL (13.0-17.5); LYMPH # 1.3 x10^3/uL (1.0-4.8); LYMPH % 22 % (24-48); MEAN CORPUSCULAR HEMOGLOBIN 22 pg (25-35); MEAN CORPUSCULAR HGB CONC 31 g/dL (31-37); MEAN CORPUSCULAR VOLUME 72 fL (79-100); MONO # 0.6 x10^3/uL (0.0-1.1); MONO % 10 % (0-9); NEUT % 66 % (31-73); PLATELET COUNT 209 x10^3/uL (140-400); RED BLOOD COUNT 4.11 x10^6/uL (4.30-5.70); RED CELL DISTRIBUTION WIDTH 17.5 % (11.5-14.5)
[2018-08-14 04:35] LABS: ALBUMIN 2.9 g/dL (3.4-5.0); ALBUMIN/GLOBULIN RATIO 0.7 (1.0-1.7); CALCIUM 9.4 mg/dL (8.5-10.1); CREATININE 0.9 mg/dL (0.7-1.3); GFR 80.6; TOTAL BILIRUBIN 0.5 mg/dL (0.2-1.0); TOTAL PROTEIN 6.8 g/dL (6.4-8.2)
[2018-08-14 05:52] VITALS: BP 157/75
[2018-08-14 07:20] VITALS: BP 154/73
[2018-08-14] MEDS: FERROUS SULFATE 325 MG TABLET. PO SCH (08:26)
[2018-08-14] MEDS: CLOPIDOGREL BISULFATE 75 MG TABLET PO SCH (08:26)
[2018-08-14] MEDS: ASCORBIC ACID 500 MG TABLET PO SCH (08:26)
[2018-08-14] MEDS: amLODIPine BESYLATE 5 MG TABLET PO SCH (08:26)
[2018-08-14] MEDS: IPRATRPIUM/ALBUTEROL 0.5/2.5MG 3 ML NEBU. NEB SCH ×2 (08:33→12:00)
[2018-08-14] MEDS: BUDESONIDE 0.5 MG/2 ML NEBU. NEB SCH (08:33)
--- NOTE | 2018-08-14 09:04 | RAD ---
EXAM: CHEST 1 VIEW History: Pneumonia COMPARISON: 08/11/2018 TECHNIQUE: Single portable radiograph of the chest FINDINGS: The cardiac silhouette is unremarkable. Minimal bibasilar lung atelectasis or infiltrates. Mild hyperinflated lungs . The costophrenic sulci are clear and well demarcated. IMPRESSION: Minimal bibasilar lung atelectasis or infiltrates. Electronically signed by: Abebe Love MD (08/14/2018 9:01 AM) [id number]
[2018-08-14 10:55] VITALS: BP 135/70
[2018-08-14] MEDS ORDERED: CEFU500T46 PO (12:50)
[2018-08-14] MEDS ORDERED: ASCO500T2 PO (12:50)
[2018-08-14] MEDS ORDERED: FERR325T72 PO (12:50)
[2018-08-14] MEDS ORDERED: BUDE10.2 IH (12:50)
--- NOTE | 2018-08-14 13:05 | PDOC ---
PULMONARY PROGRESS NOTES Subjective feels better wants to go home Vitals Vital Signs Date Time Temp Pulse Resp B/P (MAP) Pulse Ox O2 Delivery O2 Flow Rate FiO2 08/14/18 10:55 98.1 102 19 135/70 (91) 95 Room Air 98.1 08/14/18 05:52 4.0 General: Alert, No acute distress Lungs: Clear Cardiovascular: S1 Abdomen: Soft Neuro Exam: Alert Extremities: No Edema Skin: Warm Labs Laboratory Tests Test 08/14/18 03:45 White Blood Count 6.0 x10^3/uL (4.0-11.0) Red Blood Count 4.11 x10^6/uL (4.30-5.70) Hemoglobin 9.1 g/dL (13.0-17.5) Hematocrit 29.5 % (39.0-53.0) Mean Corpuscular Volume 72 fL (79-100) Mean Corpuscular Hemoglobin 22 pg (25-35) Mean Corpuscular Hemoglobin Concent 31 g/dL (31-37) Red Cell Distribution Width 17.5 % (11.5-14.5) Platelet Count 209 x10^3/uL (140-400) Neutrophils (%) (Auto) 66 % (31-73) Lymphocytes (%) (Auto) 22 % (24-48) Monocytes (%) (Auto) 10 % (0-9) Eosinophils (%) (Auto) 1 % (0-3) Basophils (%) (Auto) 1 % (0-3) Neutrophils # (Auto) 4.0 x10^3uL (1.8-7.7) Lymphocytes # (Auto) 1.3 x10^3/uL (1.0-4.8) Monocytes # (Auto) 0.6 x10^3/uL (0.0-1.1) Eosinophils # (Auto) 0.0 x10^3/uL (0.0-0.7) Basophils # (Auto) 0.0 x10^3/uL (0.0-0.2) Sodium Level 136 mmol/L (136-145) Potassium Level 4.0 mmol/L (3.5-5.1) Chloride Level 101 mmol/L (98-107) Carbon Dioxide Level 26 mmol/L (21-32) Anion Gap 9 (6-14) Blood Urea Nitrogen 16 mg/dL (8-26) Creatinine 0.9 mg/dL (0.7-1.3) Estimated GFR (Cockcroft-Gault) 80.6 BUN/Creatinine Ratio 18 (6-20) Glucose Level 97 mg/dL (70-99) Calcium Level 9.4 mg/dL (8.5-10.1) Total Bilirubin 0.5 mg/dL (0.2-1.0) Aspartate Amino Transf (AST/SGOT) 18 U/L (15-37) Alanine Aminotransferase (ALT/SGPT) 20 U/L (16-63) Alkaline Phosphatase 77 U/L (46-116) Total Protein 6.8 g/dL (6.4-8.2) Albumin 2.9 g/dL (3.4-5.0) Albumin/Globulin Ratio 0.7 (1.0-1.7) Laboratory Tests Test 08/14/18 03:45 White Blood Count 6.0 x10^3/uL (4.0-11.0) Red Blood Count 4.11 x10^6/uL (4.30-5.70) Hemoglobin 9.1 g/dL (13.0-17.5) Hematocrit 29.5 % (39.0-53.0) Mean Corpuscular Volume 72 fL (79-100) Mean Corpuscular Hemoglobin 22 pg (25-35) Mean Corpuscular Hemoglobin Concent 31 g/dL (31-37) Red Cell Distribution Width 17.5 % (11.5-14.5) Platelet Count 209 x10^3/uL (140-400) Neutrophils (%) (Auto) 66 % (31-73) Lymphocytes (%) (Auto) 22 % (24-48) Monocytes (%) (Auto) 10 % (0-9) Eosinophils (%) (Auto) 1 % (0-3) Basophils (%) (Auto) 1 % (0-3) Neutrophils # (Auto) 4.0 x10^3uL (1.8-7.7) Lymphocytes # (Auto) 1.3 x10^3/uL (1.0-4.8) Monocytes # (Auto) 0.6 x10^3/uL (0.0-1.1) Eosinophils # (Auto) 0.0 x10^3/uL (0.0-0.7) Basophils # (Auto) 0.0 x10^3/uL (0.0-0.2) Sodium Level 136 mmol/L (136-145) Potassium Level 4.0 mmol/L (3.5-5.1) Chloride Level 101 mmol/L (98-107) Carbon Dioxide Level 26 mmol/L (21-32) Anion Gap 9 (6-14) Blood Urea Nitrogen 16 mg/dL (8-26) Creatinine 0.9 mg/dL (0.7-1.3) Estimated GFR (Cockcroft-Gault) 80.6 BUN/Creatinine Ratio 18 (6-20) Glucose Level 97 mg/dL (70-99) Calcium Level 9.4 mg/dL (8.5-10.1) Total Bilirubin 0.5 mg/dL (0.2-1.0) Aspartate Amino Transf (AST/SGOT) 18 U/L (15-37) Alanine Aminotransferase (ALT/SGPT) 20 U/L (16-63) Alkaline Phosphatase 77 U/L (46-116) Total Protein 6.8 g/dL (6.4-8.2) Albumin 2.9 g/dL (3.4-5.0) Albumin/Globulin Ratio 0.7 (1.0-1.7) Medications Active Scripts Medications Dose Route/Sig Max Daily Dose Days Date Category Breo Ellipta 100-25 Mcg Inh (Fluticasone/Vilanterol) 1 Each Aer.pow.ba Unknown Dose IH DAILY 08/11/18 Reported Hydrocodone-Apap 5-325 (Hydrocodone Bit/Acetaminophen) 1 Tab Tablet 5 Tab PO PRN Q6HRS PRN 08/11/18 Reported Flomax (Tamsulosin Hcl) 0.4 Mg Cap.er.24h 1 Cap PO DAILY 08/11/18 Reported Amlodipine Besylate 5 Mg Tablet 5 Mg PO DAILY 08/11/18 Reported Donepezil Hcl 10 Mg Tablet 10 Tab PO DAILY 08/11/18 Reported Tramadol Hcl 50 Mg Tablet 50 Mg PO DAILY PRN 04/11/18 Reported Xanax (Alprazolam) 0.25 Mg Tablet 1 Tab PO DAILY 04/11/18 Reported Clopidogrel (Clopidogrel Bisulfate) 75 Mg Tablet 1 Tab PO DAILY 04/11/18 Reported Impression . 1. Dyspnea secondary to acute exacerbation of chronic obstructive pulmonary disease and pneumonia. 2. Community-acquired pneumonia. He has an abnormal CT chest, which shows nodular infiltrate in the right middle lobe and also some nodular consolidation in the superior segment of the left lower lobe. This was surrounded by faint alveolar infiltrates. He would benefit from a followup CT chest in 4-6 weeks to rule out any malignancy. 3. Pipe smoker for last 50+ years. He likely has underlying chronic obstructive pulmonary disease. Plan . 1. Continue with present antibiotic. 2. Bronchodilators. 3. Follow up CT chest in 6-[address] Tabares 4. PFTs as an outpatient. 5. Smoking cessation counseling provided. 6. Discussed with RN. yovany with SONU Salas MD August 14, 2018 13:05
--- NOTE | 2018-08-14 13:33 | NUR ---
Discharge Note: VELA,VITA Arias [address] [place] [address] Discharge instructions and discharge home medications reviewed with Patient and a copy given. All questions have been answered and understanding verbalized. The following instructions and handouts were given: CAP, DDIII Discontinued lines and drains: 1 x PIV tip intact Patient discharged to home with daughter
--- NOTE | 2018-08-14 18:18 | PDOC3 ---
Discharge Summary [facility] Date of Admission: August 11, 2018 Discharge Date: August 14, 2018 Admitting Diagnosis CAP Final Diagnosis (1) CAP (community acquired pneumonia) Status: Acute (2) Chest wall pain Status: Acute (3) COPD (chronic obstructive pulmonary disease) Status: Acute (4) Tobacco abuse Status: Acute (5) Tobacco abuse counseling Status: Acute CONSULTS Wanda, speech therapy Procedures video swallow Brief Hospital Course Mr. Thayer is a 82 old who presented with: (1) CAP (community acquired pneumonia) - he aspirates thin liquids - honey thick Dysphagia III diet, he was taught chin tuck maneuver, received 1 dose IV azithromycin, 4 days of IV Rocephin and converted to 500 mg cefuroxime axetil 500 mg x 7 more days, repeat CXR showed improvement, will need f/u CT scan in a few weeks due to the possibility of underlying mass (2) CAD/Chest wall pain - resolved, lo salt diet, continued home cardiac meds (3) COPD (chronic obstructive pulmonary disease) - neb treatments provided during hospitalization, will resume Symbicort at discharge, 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 (4) Tobacco abuse - pipe smoker - no desire to quit (5) anemia- iron def, added oral supplement Disposition home CONDITION AT DISCHARGE: Improved, Stable Diet level III dysphagia, honey thick liquids, chin tuck Scheduled Alprazolam (Xanax), 1 TAB PO DAILY, (Reported) Amlodipine Besylate (Amlodipine Besylate), 5 MG PO DAILY, (Reported) Ascorbic Acid (Vitamin C), 500 MG PO DAILY Budesonide/Formoterol Fumarate (Symbicort 160-4.5 Mcg Inhaler), 2 PUFF IH BID Cefuroxime Axetil (Cefuroxime), 1 TAB PO BID Clopidogrel Bisulfate (Clopidogrel), 1 TAB PO DAILY, (Reported) Donepezil Hcl (Donepezil Hcl), 10 TAB PO DAILY, (Reported) Ferrous Sulfate (Feosol), 325 MG PO DAILYWBKFT Tamsulosin Hcl (Flomax), 1 CAP PO DAILY, (Reported) Scheduled PRN Tramadol Hcl (Tramadol Hcl), 50 MG PO DAILY PRN for PAIN, (Reported) Discontinued Medications Fluticasone/Vilanterol (Breo Ellipta 100-25 Mcg Inh), Unknown Dose IH DAILY, (Reported) Hydrocodone Bit/Acetaminophen (Hydrocodone-Apap 5-325 ), 5 TAB PO PRN Q6HRS PRN for PAIN, (Reported) Follow Up 1-2 weeks, CT chest in 6-8 weeks Bernie QUESADA MD August 14, 2018 18:18
== END 2018-08-14 13:55 | disposition home or self-care (01) | DRG 871 ==
LOC: ER 11:06 → 6 SOUTH 13:57
PROVIDERS: ADMIT Family Medicine; ATTEND Family Medicine
DX: A41.9 Sepsis, unspecified organism (principal); J18.9 Pneumonia, unspecified organism; J44.1 Chronic obstructive pulmonary disease with (acute) exacerbation; J44.0 Chronic obstructive pulmonary disease with (acute) lower respiratory infection; I25.10 Atherosclerotic heart disease of native coronary artery without angina pectoris; M19.90 Unspecified osteoarthritis, unspecified site; F17.290 Nicotine dependence, other tobacco product, uncomplicated; K21.9 Gastro-esophageal reflux disease without esophagitis; F41.9 Anxiety disorder, unspecified; I10 Essential (primary) hypertension; I65.29 Occlusion and stenosis of unspecified carotid artery; D50.9 Iron deficiency anemia, unspecified; N40.0 Benign prostatic hyperplasia without lower urinary tract symptoms; R13.10 Dysphagia, unspecified; I25.2 Old myocardial infarction; Z99.81 Dependence on supplemental oxygen; Z88.5 Allergy status to narcotic agent; Z95.5 Presence of coronary angioplasty implant and graft; Z79.02 Long term (current) use of antithrombotics/antiplatelets; Z86.73 Personal history of transient ischemic attack (TIA), and cerebral infarction without residual deficits
CPT/HCPCS: 36415; 71045; 71275; 74230; 80048; 80053; 82550; 82607; 82728; 83540; 83550; 83605; 83735; 83880; 84484; 85025; 85379; 85610; 93005; 94640; 94760; 96365; 96375; J0456; J0696; J2930; J7620; J7626; Q9967; 92526; 92610; 92611; 99285-25

== ENCOUNTER → 2018-11-06 | Outpatient (CLI) | payer MEDICARE ==
[~2018-11-06] MED LIST changes: +AMLO5TAB10 PO; +ASCO500T2 PO; +BREO ELLIPTA 11 EACH IH; +BUDE10.2 IH; +CEFU500T46 PO; +DONE10TA7 PO; +FERR325T72 PO; +HYDR-2761 PO; +TAMS0.4C97 PO
--- NOTE | 2018-11-06 13:15 | KCIC ---
EXAM: Chest, 2 views. HISTORY: Cough. COMPARISON: 08/14/2018 FINDINGS: 2 views of the chest are obtained. There is stable blunting of the right costophrenic angle likely due to basilar pleural-parenchymal scarring. There is right apical pleural-parenchymal scarring. There is emphysema. The heart is normal in size. There are few calcified granulomas. IMPRESSION: 1. Suspected right basilar and apical pleural-parenchymal scarring. 2. Emphysema. 3. Note is made that partially consolidated infiltrate within the superior segment of the left lower lobe and right middle lobe nodular opacity on the prior CT dated 08/11/2018 are not clearly seen radiographically. CT may be indicated to confirm resolution and exclude an underlying neoplasm. Electronically signed by: Marietta Leon MD (11/06/2018 1:12 PM) [place] [id number]
== END | disposition home or self-care (01) ==
LOC: KCIC 11:03
PROVIDERS: ATTEND Family Medicine
DX: J43.9 Emphysema, unspecified (principal); J98.4 Other disorders of lung; J84.10 Pulmonary fibrosis, unspecified; R91.8 Other nonspecific abnormal finding of lung field
CPT/HCPCS: 71046

== ENCOUNTER → 2018-12-24 | Outpatient (CLI) | payer MEDICARE ==
[~2018-12-24] MED LIST changes: +REGADENOSON 0.4 MG/5 ML DISP.SYRIN. IV ONE
--- NOTE | 2018-12-26 13:53 | CARD ---
MR#: [id number] Date of Study: 12/24/2018 Ordering Physician: NICO ELLIS, Referring Physician: NICO ELLIS Tech: Renae Schneider RDCS APPROVED REPORT EXAM: Two-dimensional and M-mode echocardiogram with Doppler and color Doppler. Other Information Quality : AverageHR: 60bpm Rhythm : NSR INDICATION CAD 2D DIMENSIONS RVDd3.0 (2.9-3.5cm)Left Atrium(2D)3.4 (1.6-4.0cm) IVSd1.5 (0.7-1.1cm)Aortic Root(2D)2.9 (2.0-3.7cm) LVDd4.6 (3.9-5.9cm)LVOT Diameter2.0 (1.8-2.4cm) PWd1.2 (0.7-1.1cm)LVDs3.7 (2.5-4.0cm) FS (%) 19.2 %SV39.1 ml LVEF(%)40.0 (>50%) Aortic Valve AoV Peak Ace.181.0cm/sAoV VTI37.5cm AO Peak GR.13.1mmHgLVOT Peak Ace.97.6cm/s AO Mean GR.6mmHgAVA (VMAX)1.64cm2 DEVON (VTI)1.82dh7EF P 1/2 Vmtk808jg Mitral Valve MV E Batuixmn24.7cm/sMV E Peak Gr.179mmHg MV DECEL [id number] A Zhusgxap51.5cm/s E/A Ratio0.9 Pulmonary Valve PV Peak Xmwuvwap84.2cm/s Tricuspid Valve TR P. Luebsqsh611bw/sRAP [id number] TR Peak Gr.13jlJwBWPH56hpDj Pulmonary Vein S1 Furynwhf75.4cm/sD2 Qrthlczn79.8cm/s PVa [id number] LEFT VENTRICLE The left ventricle is normal size. There is mild to moderate concentric left ventricular hypertrophy. The systolic function is mildly impaired. The Ejection Fraction is 40-45%. There is global hypokines is of the left ventricle. Transmitral Doppler flow pattern is Grade I-abnormal relaxation pattern. RIGHT VENTRICLE The right ventricle is normal size. There is normal right ventricular wall thickness. The right ventr icular systolic function is normal. ATRIA The left atrium size is normal. The right atrium size is normal. The interatrial septum is intact wit h no evidence for an atrial septal defect or patent foramen ovale as noted on 2-D or Doppler imaging. AORTIC VALVE The aortic valve is not well visualized. The aortic valve is probably trileaflet. Doppler and Color F low revealed moderate aortic regurgitation. There is no significant aortic valvular stenosis. MITRAL VALVE The mitral valve is thickened but opens well. There is no evidence of mitral valve prolapse. There is no mitral valve stenosis. Doppler and Color-flow revealed moderate mitral regurgitation. TRICUSPID VALVE The tricuspid valve is normal in structure and function. Doppler and Color Flow revealed trace tricus pid regurgitation. The PA pressure was estimated at 51 mmHg. There is no tricuspid valve prolapse or vegetation. There is no tricuspid valve stenosis. PULMONIC VALVE The pulmonic valve is not well visualized. GREAT VESSELS The aortic root is normal in size. The ascending aorta is normal in size. The IVC is normal in size a nd collapses >50% with inspiration. PERICARDIAL EFFUSION There is no evidence of significant pericardial effusion. Critical Notification Critical Value: No <Conclusion> The systolic function is mildly impaired. The Ejection Fraction is 40-45%. There is global hypokinesis of the left ventricle. Doppler and Color Flow revealed moderate aortic regurgitation. Doppler and Color-flow revealed moderate mitral regurgitation. Doppler and Color Flow revealed trace tricuspid regurgitation. The PA pressure was estimated at 51 mm Hg. Signed by : Saleem Velasquez, Electronically Approved : 12/24/2018 10:07:29
--- NOTE | 2018-12-26 13:53 | RAD ---
MR#: [id number] Date of Study: 12/24/2018 Ordering Physician: NICO ELLIS Referring Physician: GRAY ROBB Tech: YVONNE Myers APPROVED REPORT Test Type: Pharmacological Stress Nurse/Tech: Gabe OLIVA Test Indications: CAD Cardiac History: [place] 2009, HTN, See EMR Medications: Plavix, See EMR Medical History: COPD, See EMR Resting ECG: SB Resting Heart Rate: 54 bpm Resting Blood Pressure: 165/62mmHg Pretest Chest Pain: No chest pain Nurse/Tech Notes Lungs CTA, Heart tones regular. Consent: The procedure was explained to the patient in lay terms. Informed consent was witnessed. Tristian eout was entered into [employer]. History and Stress Test performed by YVONNE Myers Pharm. Details Pharmacologic stress testing was performed using 0.4mg per 5ml of regadenoson given intravenously ove r 7-10 seconds. Stress Symptoms Pt c/o upper abdominal pain @ 8/10 in stage R @ 00:55; and then nausea. POST EXERCISE Reason for Termination: Infusion complete Max HR: 107 bpm Max Blood Pressure: 173/73mmHg Blood Pressure response to exercise: Normal blood pressure response during stress. Heart Rate response to exercise: WNL Chest Pain: No. Arrhythmia: No. ST Change: No. INTERPRETATION Stress EKG Conclusion: Baseline EKG showed sinus rhythm. No ischemic changes at peak stress. No arr hythmias. Imaging Protocol IMAGE PROTOCOL: Rest Tc-99m/stress Tc-99m 1 day Rest: Stress: Viability: Radiopharm.Tc99m EkeimtqqmFu20s Sestamibi Ywlu45jVb 33mCi Duration 15min. 13min. Img Date 12/24/2018 12/24/2018 Inj-Img Yhlj69rug. 60min. Rest Admin Site:IV - Left AntecubitalAdministrator: YVONNE Myers Stress Admin Site: IV - Left AntecubitalAdministrator: YVONNE Myers STRESS DATA End Diast. Vol.188.0mlLVEDV index EMS576.0ml End Syst. Vol.112.0mlLVESV index BSA60.0ml Myocardial Rabp198.0gEject. Wqoarbfd33.0% Stress Scores Regional WT2.00Summed WT17.00 Regional WM0.00Summed WM29.00 LV Perfusion Scintigraphic images showed fixed defect involving the inferior wall most probably diaphragmatic atte nuation artifact. No other fixed or reversible defects were seen. Wall Motion Mild left ventricle systolic dysfunction with ejection fraction Greater than 40%. LV Perf. Quant 17 Seg. SSS11.00 17 Seg. SRS2.00 17 Seg. SDS9.00 Stress Defect Extent (% LAD)3.80Rest Defect Extent (% LAD)0.00Rev. Defect Extent (% LAD)2.50 Stress Defect Extent (% LCX) 15.00Rest Defect Extent (% LCX)0.00Rev. Defect Extent (% LCX)12.50 Stress Defect Extent (% RCA)35.60Rest Defect Extent (% RCA)8.90Rev. Defect Extent (% RCA)14.40 Stress Defect Extent (% MATT)14.10Rest Defect Extent (% MATT)2.80Rev. Defect Extent (% MATT)7.60 Conclusion 1. Regadenoson cardioisotope stress test showed diaphragmatic attenuation artifact without any eviden ce of ischemia or infarct. 2. Mild left ventricle systolic dysfunction with ejection fraction calculated at 40%. 3. Low to intermediate risk for cardiac events. Signed by : Nico Ellis, Electronically Approved : 12/24/2018 11:39:49
== END | disposition home or self-care (01) ==
LOC: NM 07:39
PROVIDERS: ATTEND Internal Medicine Cardiovascular Disease
DX: I08.0 Rheumatic disorders of both mitral and aortic valves (principal); I11.9 Hypertensive heart disease without heart failure; I25.10 Atherosclerotic heart disease of native coronary artery without angina pectoris; J44.9 Chronic obstructive pulmonary disease, unspecified; Z79.01 Long term (current) use of anticoagulants
CPT/HCPCS: 78452; 93017; 93306; A9500; J2785

== ENCOUNTER 2019-01-19 09:37 | Outpatient (CLI) | payer MEDICARE ==
[2019-01-19] VITALS (13 sets, daily range): BP systolic 116–164; BP diastolic 53–71
[~2019-01-19] VITALS: Ht 170.2 cm; Wt 70.8 kg
[~2019-01-19 09:37] MED LIST changes: -REGADENOSON 0.4 MG/5 ML DISP.SYRIN. IV ONE
[2019-01-19] MEDS ORDERED: LIDOCAINE 1% PF 2 ML VIAL. ONE (10:07)
[2019-01-19 10:08] LABS: HEMATOCRIT 42.5 % (39.0-53.0); HEMOGLOBIN 14.1 g/dL (13.0-17.5); RED BLOOD COUNT 4.74 x10^6/uL (4.30-5.70)
[2019-01-19 10:17] LABS: GFR 71.2; POTASSIUM 4.6 mmol/L (3.5-5.1)
[2019-01-19 10:18] LABS: PROTHROMBIN TIME PATIENT 13.3 SEC (11.7-14.0)
[2019-01-19] MEDS ORDERED: IODIXANOL 320 MG/ML 100 ML VIAL. ONE (11:11)
[2019-01-19] MEDS ORDERED: fentaNYL PF VIAL 100 MCG/2 ML VIAL ONE (11:14)
[2019-01-19] MEDS ORDERED: VERAPAMIL 5 MG/2 ML VIAL. ONE (11:14)
[2019-01-19] MEDS ORDERED: HEPARIN for IV BOLUS 10,000 UNIT/10 ML VIAL. ONE (11:14)
[2019-01-19] MEDS ORDERED: MIDAZOLAM HCL/PF 2 MG/2 ML VIAL. ONE ×2 (11:14→11:48)
[2019-01-19] MEDS ORDERED: NITROGLYCERIN 200 MCG/2 ML SYRINGE FOR CATH/VASC LAB. ONE (11:15)
[2019-01-19] MEDS ORDERED: fentaNYL PF VIAL 100 MCG/2 ML VIAL IV ONE (11:30)
[2019-01-19] MEDS ORDERED: IODIXANOL 320 MG/ML 100 ML VIAL. IART ONE (11:30)
[2019-01-19] MEDS ORDERED: HEPARIN for IV BOLUS 10,000 UNIT/10 ML VIAL. IART ONE (11:30)
[2019-01-19] MEDS ORDERED: VERAPAMIL 5 MG/2 ML VIAL. IART ONE (11:30)
[2019-01-19] MEDS ORDERED: NITROGLYCERIN 200 MCG/2 ML SYRINGE FOR CATH/VASC LAB. IART ONE (11:30)
[2019-01-19] MEDS ORDERED: MIDAZOLAM HCL/PF 2 MG/2 ML VIAL. IV ONE (11:30)
[2019-01-19] MEDS ORDERED: LIDOCAINE 1% PF 2 ML VIAL. INJ ONE (12:00)
[2019-01-19] MEDS ORDERED: IV 1/2 NORMAL SALINE 1,000 ML IV SCH (12:24)
--- NOTE | 2019-01-19 12:24 | PDOC ---
MODERATE SEDATION ASSESSMENT RISKS/ALTERNATIVES Risks/Alternatives Risks and alternatives of this type of sedation and procedure discussed with: RISK/ALTERNATIVES: Patient H & P ON CHART H & P H & P on chart and reviewed for co-morbid conditions and appropriate labs. H&P ON CHART: Yes STATUS PREG STATUS ASSESSED: N/A MEDS/ALLERGIES REVIEWED Meds/Allergies Reviewed Medications and Allergies including time and route of recently administered narcotics and sedatives. MEDS/ALLERGIES REVIEWED: Yes ASA RATING ASA RATING: III AIRWAY ASSESSMENT Airway Assessment Airway patency, oral function limitations, presence of caps, crowns, dentures, partials, and ability to extend neck assessed. AIRWAY ASSESSMENT: Yes MALLAMPATI SCORE MALLAMPATI SCORE: II PRE-SEDATION ASSESSMENT PRE-SEDATION ASSESSMENT: Yes NICO ELLIS MD Jan 19, 2019 12:24
[2019-01-19] MEDS ORDERED: NITROGLYCERIN SUBLINGUAL 0.4 MG BOTTLE OF 25. SL PRN (12:30)
--- NOTE | 2019-01-19 13:39 | CARD ---
MR#: [id number] Date of Study: 01/19/2019 Ordering Physician: NICO ROSEN, Referring Physician: NICO ROSEN, Tech: RT Edgar (R) ANGELICA APPROVED REPORT Technologist: RT Edgar (R) ANGELICA Nurse: Julienne Sullivan RN Procedure(s) performed: Left heart catheterization, selective coronary angiography and left ventricul ography via right transradial approach fluoro time: 4.6 dose: 54 Gycm2 mod sedation: 25 min contrast: 98ml INDICATION The indication(s) include : Refractory dyspnea on exertion concerning for unstable angina. [facility] Clinical Frailty Scale [facility] Clinical Frailty Scale: Mildly Frail Heart Failure Heart Failure: No PROCEDURE NARRATIVE After explaining the risks, benefits and alternative options, informed consent was obtained from justin ent. Patient was brought to the cardiac Customer Service Advocate and right wrist was prepped and draped in the usual fashion after confirming a positive modified Malvin's test. Arterial access was obtained in the righ t radial artery and a 6 Andorran sheath was inserted. 6 Andorran Esau catheter was used to perform kaden ective angiography of the left and right coronary arteries. 6 Andorran pigtail catheter was used to pe rform left ventriculography. Patient tolerated the procedure well. Hemostasis was achieved using TR band. There were no immediate complications. The following findings were noted. FINDINGS 1. Hemodynamics: Left ventricular end-diastolic pressure of 16 mmHg. No pullback gradient across th e aortic valve. 2. Left ventriculography: Mild left ventricle systolic dysfunction with ejection fraction estimated at 45%. No significant mitral regurgitation seen. 3. Coronary angiography: a. The left main coronary artery arose from the left sinus of Valsalva, gave rise to the left anteri or descending and left circumflex arteries and showed 20% ostial segment stenosis. b. The left anterior descending artery showed 30% stenosis in the midsegment. c. The left circumflex artery did not show any significant stenosis. d. The right coronary artery was a large and dominant vessel arising from the right sinus of Valsalv a that showed widely patent stent in the midsegment. Conclusion 1. Widely patent previously placed stent in the right coronary artery. No significant lesions needi ng intervention were noted. 2. Mild left ventricle systolic dysfunction with ejection fraction estimated at 45%. Recommendations Medical Therapy Signed by : Nico Rosen, Electronically Approved : 01/19/2019 13:39:06
--- NOTE | 2019-01-19 15:38 | NUR ---
Discharge Note: VELA,VITA Discharge instructions and discharge home medications reviewed with Patient and a copy given. All questions have been answered and understanding verbalized. The following instructions and handouts were given: Post Radial Cath, Moderate Sedation Discontinued lines and drains: Peripheral IV intact. Patient discharged to Home or Self Care with Family Member via Wheelchair
== END 2019-01-19 15:40 | disposition home or self-care (01) ==
LOC: CCL 09:37
PROVIDERS: ATTEND Internal Medicine Cardiovascular Disease
DX: I25.110 Atherosclerotic heart disease of native coronary artery with unstable angina pectoris (principal); K21.9 Gastro-esophageal reflux disease without esophagitis; J44.9 Chronic obstructive pulmonary disease, unspecified; N40.1 Benign prostatic hyperplasia with lower urinary tract symptoms; I10 Essential (primary) hypertension; Z95.5 Presence of coronary angioplasty implant and graft; Z87.891 Personal history of nicotine dependence; Z88.8 Allergy status to other drugs, medicaments and biological substances
CPT/HCPCS: 36415; 80048; 85027; 85610; 93458; 99152; 99153; C1769; C1892; J1644; J2250; J3010; J3490; Q9967

== ENCOUNTER → 2019-10-09 | Outpatient (CLI) | payer MEDICARE ==
[2019-01-19 15:10] VITALS: BP 148/71
[~2019-10-09] MED LIST changes: -ASCO500T2 PO; +ASCO500T4 PO
--- NOTE | 2019-10-09 10:04 | CARD ---
MR#: [id number] Date of Study: 10/09/2019 Ordering Physician: NICO ELLIS, Referring Physician: NICO ELLIS Tech: Lena Quarles RDCS APPROVED REPORT EXAM: Two-dimensional and M-mode echocardiogram with Doppler and color Doppler. Other Information Quality : Good INDICATION Atherosclerotic Heart Disease 2D DIMENSIONS RVDd2.4 (2.9-3.5cm)Left Atrium(2D)3.7 (1.6-4.0cm) IVSd1.0 (0.7-1.1cm)Aortic Root(2D)2.7 (2.0-3.7cm) LVDd6.0 (3.9-5.9cm)LVOT Diameter2.3 (1.8-2.4cm) PWd1.0 (0.7-1.1cm)LVDs5.0 (2.5-4.0cm) FS (%) 16.7 %SV62.4 ml LVEF(%)35.0 (>50%) Aortic Valve AoV Peak Ace.180.9cm/sAoV VTI34.5cm AO Peak GR.13.1mmHgAO Mean GR.6mmHg AI P 1/2 Rjub198wf Mitral Valve MV E Zidsbrqe26.9cm/sMV E Peak Gr.191mmHg MV DECEL MDTX834ybNG A Jrcrtzzr73.1cm/s MV YZW62uqE/A Ratio1.6 MVA (PHT)5.28cm2 TDI E/Lateral E'24.8E/Medial E'24.3 Tricuspid Valve TR P. Dwaqgvoe356nu/sRAP TXBBUMJH2voDs TR Peak Gr.85mqAvYBNV22glKw Pulmonary Vein S1 Wtpydrgx82.0cm/sD2 Ojnlzuct53.0cm/s LEFT VENTRICLE The Left Ventricle is mildly dilated. There is normal left ventricular wall thickness. Left ventricle systolic function is mildly to moderately impaired. The Ejection Fraction is 45%. There is global hy pokinesis of the left ventricle. Transmitral Doppler flow pattern is Grade II-pseudonormal filling dy namics. RIGHT VENTRICLE The right ventricle is normal size. The right ventricular systolic function is normal. ATRIA The left atrium is mildly dilated. The right atrium size is normal. The interatrial septum is intact with no evidence for an atrial septal defect or patent foramen ovale as noted on 2-D or Doppler imagi ng. AORTIC VALVE The aortic valve is calcified but opens well. Doppler and Color Flow revealed moderate eccentric aort ic regurgitation. There is no significant aortic valvular stenosis. MITRAL VALVE The mitral valve is mildly thickened but opens well. There is no evidence of mitral valve prolapse. T here is no mitral valve stenosis. Doppler and Color-flow revealed moderate to severe mitral regurgita tion. TRICUSPID VALVE The tricuspid valve is normal in structure and function. Doppler and Color Flow revealed trace tricus pid regurgitation. The PA pressure was estimated at 29 mmHg. There is no tricuspid valve stenosis. PULMONIC VALVE The pulmonic valve is not well visualized. Doppler and Color Flow revealed no pulmonic valvular regur gitation. There is no pulmonic valvular stenosis. GREAT VESSELS The aortic root is normal in size. The ascending aorta is normal in size. The IVC is normal in size a nd collapses >50% with inspiration. PERICARDIAL EFFUSION There is no evidence of significant pericardial effusion. Critical Notification Critical Value: No <Conclusion> Left ventricle systolic function is mildly to moderately impaired. The Ejection Fraction is 45%. Doppler and Color Flow revealed moderate eccentric aortic regurgitation. Doppler and Color-flow revealed moderate to severe mitral regurgitation. Signed by : Saleem Velasquez, Electronically Approved : 10/09/2019 10:03:38
== END | disposition home or self-care (01) ==
LOC: ECHO 07:29
PROVIDERS: ATTEND Internal Medicine Cardiovascular Disease
DX: I08.0 Rheumatic disorders of both mitral and aortic valves (principal); I25.10 Atherosclerotic heart disease of native coronary artery without angina pectoris
CPT/HCPCS: 93306

== ENCOUNTER 2020-09-07 14:55 | Emergency (ER) | payer MEDICARE ==
[~2020-09-07] VITALS: Ht 172.7 cm; Wt 73.6 kg
[~2020-09-07 14:55] MED LIST changes: +AMLO-186 PO; -AMLO5TAB10 PO
--- NOTE | 2020-09-07 15:08 | PHYS DOC ---
Past Medical History Past Medical History: Anxiety, CAD, COPD, Hypertension, [place] Additional Past Medical Histor: hypoglycemia, enlarged prostate Past Surgical History: No Surgical History Smoking Status: Light Tobacco Smoker Alcohol Use: None Drug Use: None General Adult EDM: Chief Complaint: RIB PAIN HPI: HPI: This is a pleasant 84-year-old male who presents emergency department today with left-sided rib pain after working on his lawnmower 3 or 4 days ago. Since then he has had a sharp pain which is worse with movement and deep breaths. It is not present when he is resting comfortably. He denies unilateral leg swelling hemoptysis or history of DVT or PE. He does have a history of coronary artery disease. Review of systems is negative for Abdominal pain diaphoresis vomiting fevers chills. He denies headache head injury loss of consciousness syncope. All other review of systems negative. Heart Score: C/O Chest Pain: N/A (chest wall pain) Risk Factors: Risk Factors: DM, Current or recent (<one month) smoker, HTN, HLP, family history of CAD, obesity. Risk Scores: Score 0 - 3: 2.5% MACE over next 6 weeks - Discharge Home Score 4 - 6: 20.3% MACE over next 6 weeks - Admit for Clinical Observation Score 7 - 10: 72.7% MACE over next 6 weeks - Early Invasive Strategies Allergies: Allergies: Allergies Coded Allergies Type Severity Reaction Last Updated Verified codeine Allergy Intermediate 08/11/18 No Physical Exam: PE: Constitutional: Well developed, well nourished, no acute distress, non-toxic appearance. [] HENT: Normocephalic, atraumatic, bilateral external ears normal, oropharynx moist, no oral exudates, nose normal. [] Eyes: PERRLA, EOMI, conjunctiva normal, no discharge. [] Neck: Normal range of motion, no tenderness, supple, no stridor. [] Cardiovascular:Heart rate regular rhythm, no murmur [] Lungs & Thorax: Bilateral breath sounds clear to auscultation [] rib cage is tender on the left side. Abdomen: Bowel sounds normal, soft, no tenderness, no masses, no pulsatile masses. [] Skin: Warm, dry, no erythema, no rash. [] Back: No tenderness, no CVA tenderness. [] Extremities: No tenderness, no cyanosis, no clubbing, ROM intact, no edema. [] Neurologic: Alert and oriented X 3, normal motor function, normal sensory function, no focal deficits noted. [] Psychologic: Affect normal, judgement normal, mood normal. [] EKG: EKG: EKG shows a sinus rhythm with a regular rate. Show repolarization abnormality in the inferior leads. Scar Bosa negative. LVH probable.. Not suggestive of acute ischemia. Does not meet STEMI criteria. Compared to previous on August 112018. Similar appearance. Radiology/Procedures: Radiology/Procedures: [] Course & Med Decision Making: Course & Med Decision Making Pertinent Labs and Imaging studies reviewed. (See chart for details) [] 84-year-old male presenting with chest wall pain after lifting the tractor base. Patient has significant tenderness palpation of the chest wall which is the pain that he is describing. It is worse with movement and he does not have any pain at rest. EKG and troponin are within normal limits here. On final examination the patient has no chest pain. We will discharge him to follow-up with PCP in 1 to 2 days. Dragon Disclaimer: Dragon Disclaimer: This electronic medical record was generated, in whole or in part, using a voice recognition dictation system. Departure Departure Impression: Primary Impression: Chest wall pain Disposition: HOME / SELF CARE / HOMELESS Condition: STABLE Referrals: Bernie QUESADA MD (PCP) Patient Instructions: Chest Wall Pain Additional Instructions: EMERGENCY DEPARTMENT GENERAL DISCHARGE INSTRUCTIONS Follow-up with your primary physician in 1 to 2 days. Return to the emergency department if you have any new or concerning findings. Thank you for coming to [facility] Emergency Department (ED) today and trusting us with you care. We trust that you had a positive experience in our Emergency Department. If you wish to speak to the department management, you may call the Director at [phone]. Follow up is important in emergency/acute care visits. This condition should be evaluated by your primary care physician and any necessary consulting services for continued management within a few days (1-2) after discharge. Return to the emergency department if you have any new or concerning symptoms including but not limited to fever, chills, nausea, vomiting, intractable pain, any new rashes, chest pain, shortness of breath, uncontrolled bleeding, difficulty breathing, and/or vision loss. 1. Do you have a private Doctor? If you do not have a private doctor, please ask for a resource list of physicians or clinics that may be able to assist you with follow up care. 2. If a lab test or culture has been done and does not come back immediately, your results will be reviewed and you will be notified if you need a change in treatment. 3. Your care today has been supervised by a physician who is specially trained in emergency care. Many problems require more than one evaluation for a complete diagnosis and treatment. We recommend that you schedule your follow up appointment as recommended to ensure complete treatment of you illness or injury. If you are unable to obtain follow up care and continue to have a problem, or if your condition worsens, we recommend that you return to the ED. 4. We are not able to safely determine your condition over the phone nor are we able to give sound medical advice over the phone. For these safety reasons, if you call for medical advice we will ask you to come to the ED for further evaluation. IF YOUR SYMPTOMS WORSEN OR NEW SYMPTOMS DEVELOP, OR YOU HAVE CONCERNS ABOUT YOUR CONDITION; OR IF YOUR CONDITION WORSENS WHILE YOU ARE WAITING FOR YOUR FOLLOW UP APPOINTMENT; EITHER CONTACT YOUR PRIMARY CARE DOCTOR, THE PHYSICIAN WHOSE NAME AND NUMBER YOU WERE GIVEN, OR RETURN TO THE ED IMMEDIATELY. ELEAZAR STEEL MD Sep 07, 2020 15:07
[2020-09-07 15:09] LABS: BASO # 0.1 x10^3/uL (0.0-0.2); BASO % 1 % (0-3); EOS # 0.1 x10^3/uL (0.0-0.7); EOS % 2 % (0-3); HEMATOCRIT 37.3 % (39.0-53.0); HEMOGLOBIN 12.2 g/dL (13.0-17.5); LYMPH # 1.5 x10^3/uL (1.0-4.8); LYMPH % 34 % (24-48); MEAN CORPUSCULAR HEMOGLOBIN 26 pg (25-35); MEAN CORPUSCULAR HGB CONC 33 g/dL (31-37); MEAN CORPUSCULAR VOLUME 79 fL (79-100); MONO # 0.4 x10^3/uL (0.0-1.1); MONO % 9 % (0-9); NEUT # 2.4 x10^3/uL (1.8-7.7); NEUT % 54 % (31-73); PLATELET COUNT 209 x10^3/uL (140-400); RED BLOOD COUNT 4.75 x10^6/uL (4.30-5.70); RED CELL DISTRIBUTION WIDTH 15.1 % (11.5-14.5); WHITE BLOOD COUNT 4.4 x10^3/uL (4.0-11.0)
[2020-09-07 15:20] LABS: CALCIUM 9.7 mg/dL (8.5-10.1); CREATININE 1.4 mg/dL (0.7-1.3); GFR 48.2
[2020-09-07 15:25] LABS: DIRECT BILIRUBIN 0.1 mg/dL (0.0-0.2); TOTAL BILIRUBIN 0.3 mg/dL (0.2-1.0); TOTAL PROTEIN 8.3 g/dL (6.4-8.2)
--- NOTE | 2020-09-07 15:34 | RAD ---
EXAM: AP View of the chest DATE: 09/07/2020 3:09 PM INDICATION: Reason: chest pain / Spl. Instructions: / History: COMPARISON: No Prior FINDINGS: The heart is not enlarged. Aorta is tortuous with atherosclerotic calcifications. Minimal patchy opacities left greater than right lung base likely scarring or atelectasis. No pleural effusion or pneumothorax. IMPRESSION: Minimal patchy opacities left greater than right lung base likely scarring or atelectasis. Electronically signed by: Dario Gray MD (09/07/2020 3:31 PM) [facility]
[2020-09-07 15:54] VITALS: BP 151/66
--- NOTE | 2020-09-07 16:37 | EKG ---
[facility] [address] [place] [address] Test Date: 2020-09-07 Test Time: 14:54:49 Pat Name: VITA VELA Department: Room: Gender: M [employer]: : 1935 Requested By: ELEAZAR STEEL Order Number: [id number] Reading MD: Measurements Intervals Baring Rate: 80 P: 72 NH: 178 QRS: 70 QRSD: 104 T: 69 QT: 368 QTc: 428 Interpretive Statements SINUS RHYTHM CONSIDER LEFT VENTRICULAR HYPERTROPHY POSSIBLY ABNORMAL ECG RI6.02 No previous ECG available for comparison
== END 2020-09-07 17:06 | disposition home or self-care (01) ==
LOC: ER 14:55
DX: R07.81 Pleurodynia (principal); J44.9 Chronic obstructive pulmonary disease, unspecified; I10 Essential (primary) hypertension; I25.10 Atherosclerotic heart disease of native coronary artery without angina pectoris; I25.2 Old myocardial infarction; Z72.0 Tobacco use; Z88.5 Allergy status to narcotic agent
CPT/HCPCS: 36415; 71045; 80048; 80076; 83690; 84484; 85025; 93005; 99285-25

== ENCOUNTER → 2020-10-06 | Outpatient (CLI) | payer MEDICARE ==
[2020-09-07 15:54] VITALS: BP 151/66
--- NOTE | 2020-10-06 13:17 | KCIC ---
Right lower extremity venous duplex ultrasound study without comparison for edema in the right lower extremity. Technique an findings: Real-time grayscale and color Doppler evaluation of the right lower extremity veins is performed. The right common femoral, femoral, and popliteal veins are widely patent demonstr ating normal compressibility and augmentation. There is normal color flow within the peroneal and pos terior tibial veins. No evidence of DVT. IMPRESSION: 1. No evidence of DVT of the right lower extremity. 2. Incidentally noted is moderate bulky calcified atherosclerosis of the common femoral artery and to a lesser extent the superficial femoral artery. Electronically signed by: Peter Bravo MD (10/06/2020 1:15 PM) [id number]
== END ==
LOC: KCIC US 12:34
PROVIDERS: ATTEND Family Medicine
DX: I70.201 Unspecified atherosclerosis of native arteries of extremities, right leg (principal); R60.0 Localized edema
CPT/HCPCS: 93971

== ENCOUNTER → 2021-01-13 | Outpatient (CLI) | payer MEDICARE ==
--- NOTE | 2021-01-13 16:46 | KCIC ---
EXAM: Chest, 2 views. HISTORY: Chest pain. COMPARISON: 09/07/2020 FINDINGS: 2 views chest are obtained. There is emphysema with superimposed chronic appearing intersti tial changes. There is suspected bilateral lower lobe pleural parenchymal scarring. There are calcifi ed granulomas. There is no consolidation, pleural effusion or pneumothorax. There is a stable cardiac silhouette. IMPRESSION: Emphysema with superimposed bilateral lower lobe pleural parenchymal scarring. Electronically signed by: Marietta Leon MD (01/13/2021 4:44 PM) [facility]
== END ==
LOC: KCIC 12:23
PROVIDERS: ATTEND Family Medicine
DX: J43.9 Emphysema, unspecified (principal); J84.10 Pulmonary fibrosis, unspecified; J98.4 Other disorders of lung
CPT/HCPCS: 71046